=== PATIENT | male | born 1970 | race Caucasian/White ===

== ENCOUNTER → 2024-01-05 | Emergency (ER) | payer BC ==
[~2024-01-05] MED LIST: KETOROLAC 30 MG/ML INJ ONE; MAGNESIUM SULFATE 1 gm IVPB 1 GM/100 ML BAG IV ONE; NA CHLORIDE 0.9% 1,000 ML ONE; ONDANSETRON 4 MG/2 ML VIAL ONE; TAMSULOSIN 0.4 MG SR CAP ONE
--- OUTSIDE RECORDS SUMMARY | 2024-01-05 18:38 | XMS REPORT | Continuity of Care Document ---
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 Name Role Phone Manpreet Vital Attending Clinician Unavailable Manpreet Vital Admitting Clinician Unavailable Payers Payer Name Policy Type Policy Number Effective Date Expirati on Date Source Allergies, Adverse Reactions, Alerts Allergy Name Allergy Type Status Severity Reaction(s) Onset Date Inactive Date Treating Clinician Comments Source No Known Allergie s DA Active U 2020-10 0 00:00: 00 [facility] No Known Allergie s DA Active U 2020-10 0 00:00: 00 [facility] Procedures Procedure Date / Time Performed Performing Clinicia n Source [id number] 2021-07-22 00:00:00 [facility] [id number] 2021-07-22 00:00:00 MEANI [facility] Encounters Start Date/Time End Date/Time Encounter Type Admission Type Attending Clinicians Care Facility Care Department Encounter ID Source 2021-07-22 00:19:00 2021-07-24 12:35:00 Inpatient EM Manpreet Vital HCAPM MEDI.01 [id number] 49 [facility] 2021-07-23 10:04:00 2021-07-23 10:04:00 Outpatient Manpreet Vital HCACL LABO [id number] 97 [facility] Results Test Description Test Time Test Comments Results Result Co mments Source HGB [id number] 04:25:00* Test Item Value Reference Range Interpretation Comme nts HEMOGLOBIN (test code = HGB) 8.9 G/DL 12.3-15.9 L HEMATOCRIT (test code = HCT) 27.9 % 35.8-46.7 L GLUCOSE BEDSIDE [id number] 21:25:00* Test Item Value Reference Range Interpretation Comme nts GLUCOSE BEDSIDE TESTING (car t code = GLUBED) 83 mg/dL 70-110 N HGB [id number] 19:16:00* Test Item Value Reference Range Interpretation Comme nts HEMOGLOBIN (test code = HGB) 8.9 G/DL 12.3-15.9 L HEMATOCRIT (test code = HCT) 28.1 % 35.8-46.7 L PROTHROMBIN [id number] 19:16:00* Test Item Value Reference Range Interpretation Comme nts PT PATIENT (test code = PTP) 14.0 SECONDS 9.3-12.9 H INTERNATIONAL NORMAL RATIO (test code = INR) 1.24 INR Unit 0.8-1.2 H TARGET INR BY INDICATION Indication INR1. Prophylaxis of venous thrombosis 2.0 - 3.0 (orthopedic surgery), Prophylaxis of venous thrombosis (other than high-risk surgery), Treatment of Deep Vein Thrombosis/Pulmonary Embolism, Prevention of systemic embolism - Tissue heart valves, Acute Myocardial Infarction (to prevent systemic embolism), Valvular heart disease, Acute Myocardial Infarction (to prevent systemic embolism), Valvular heart disease, Atrial Fibrillation, Bileaflet mechanical valve in aortic position.2. Mechanical prosthetic valves (high risk), 2.5 - 3.5 Presence of Lupus Anticoagulant or Antiphospholipid Antibodies, Prevention of systemic embolism - Acute Myocardial Infarction (to prevent recurrent infarct). CBC W/AUTO [id number] 15:59:00* Test Item Value Reference Range Interpretation Comme nts WHITE BLOOD CELL (test code = WBC) 7.2 K/mm3 3.5-11.0 N RED BLOOD CELL (test code = RBC) 3.27 M/mm3 4.70-6.10 L HEMOGLOBIN (test code = HGB) 8.9 G/DL 12.3-15.9 L HEMATOCRIT (test code = HCT) 28.3 % 35.8-46.7 L MEAN CELL VOLUME (test code = MCV) 86.5 Fl 86.3-98.9 N MEAN CELL HGB (test code = MCH) 27.2 pg 28.9-34.4 L MEAN CELL HGB CONCETRATION (test code = MCHC) 31.4 G/DL 32.1-34.5 L RED CELL DISTRIBUTION WIDTH (test code = RDW) 13.7 SD 11.5-14.5 N PLATELET COUNT (test code = PLT) 137 K/mm3 150-450 L MEAN PLATELET VOLUME (test c ode = MPV) 10.50 fL 7.0-9.6 H NEUTROPHIL % (test code = NT%) 82.2 % 40-76 H IMMATURE GRANULOCYTE % (test code = IG%) 0.3 % 0.0-5.0 N LYMPHOCYTE % (test code = LY%) 11.4 % 20.5-51.1 L MONOCYTE % (test code = MO%) 5.0 % 1.7-9.3 N EOSINOPHIL % (test code = EO%) 1.0 % 0.0-6.0 N BASOPHIL % (test code = BA%) 0.1 % 0.0-2.0 N NUCLEATED RBC % (test code = NRBC%) 0.0 /100WBC% 0.0-1.0 N NEUTROPHIL # (test code = NT#) 5.9 K/mm3 1.8-7.6 N IMMATURE GRANULOCYTE # (test code = IG#) 0.02 x10 3/uL 0.00-0.03 N LYMPHOCYTE # (test code = LY#) 0.8 K/mm3 0.6-3.0 N MONOCYTE # (test code = MO#) 0.4 K/mm3 0.2-1.5 N EOSINOPHIL # (test code = EO#) 0.1 K/mm3 0.0-0.4 N BASOPHIL # (test code = BA#) 0.0 K/mm3 0.0-0.2 N NUCLEATED RBC # (test code = NRBC#) 0.0 K/mm3 0.00-0.01 N MANUAL DIFF REQUIRED (test c ode = MDIFF) NO DIFF/SCN CRITERIA HGB [id number] 13:08:00* Test Item Value Reference Range Interpretation Comme nts HEMOGLOBIN (test code = HGB) 10.3 G/DL 12.3-15.9 L HEMATOCRIT (test code = HCT) 33.0 % 35.8-46.7 L HGB [id number] 03:17:00* Test Item Value Reference Range Interpretation Comme nts HEMOGLOBIN (test code = HGB) 11.4 G/DL 12.3-15.9 L HEMATOCRIT (test code = HCT) 35.3 % 35.8-46.7 L COVID 19 Asymptomatic IH [id number] 02:09:00* Test Item Value Reference Range Interpretation Comme nts COVID 19 Asymptomatic IH AG (test code = COVNONPUIAG) NEGATIVE Negative Per television newscast director , negative results should be treated aspresumptive and, if inconsistent with clinical signs andsymptoms or necessary for patient management, should betested with an alternative molecular assay. Negative resultsdo not preclude SARS-CoV-2 infection and should not be usedas the sole basis for patient management decisions. Negative results should be considered in the context of apatient's recent exposures, history, presence of clinicalsigns and symptoms consistent with COVID-19. - CT ABD PELVIS W/[id number] 23:58:00 [facility] 1970 Sex: M Name: HALMIA CABALLERO [facility] : 1970 Age/S: 50 / M [address] [address] Unit #: [id number]: Beverley Pabon [address] Phys: Nabeel Mccall DO Acct: [id number] Dis Date: Status: REG ER PHONE #: [phone] Exam Date: 07/21/2021 2327 FAX #: Reason: rectal bleeding/recent colonoscopy/bloating EXAMS: CPT: [id number] CT ABD PELVIS W/CONT 98170 LOCATION: H43 EXAM: - CT ABD PELVIS W/CONT HISTORY: re ctal bleeding/recent colonoscopy/bloating TECHNIQUE: Axial imaging of the abdomen and pelvis from the lung base to the pubic symphysis following administration of intravenous contrast. Sagittal and coronal reconstructions. CT scan performed using appropriate/available dose optimization/reduction prashant hniques. COMPARISON: None. FINDINGS: Lung base:Mild bibasilar atelectasis. The heart size is normal. No pericardial or pleural effusion. Liver/spleen: Unremarkable. Biliary system: The gallbladder is unremarkable. No biliary duct dilatation. Pancreas: Unremarkable. Adrenal glands: Normal. Kidneys: 3.0 cm fluid density cyst at the right lower pole. 8 mm low-density at the right lower pole too small to characterize but likely a small cyst as well. Otherwise unremarkable. Vascular: Normal caliber abdominal aorta. Normal portal venous opacification. Lymph nodes: No abdominal lymphadenopathy. Pelvic structures: The urinary bladder is unremarkably distended. No pelvic lymphadenopathy or free flu id. Reproductive organs are within normal limits for age. Gastrointestinal tract:The length of thecolon and distal small bowel are fluid-filled without evidence of significant wall thickening or perienteric edema. Note is made of serpiginous hyperdensity along the PAGE 1 Signed Report (CONTINUED)Name: HALIMA CABALLERO : 1970 Age/S: 50 / M [address] [facility] Unit #: [id number] Loc: [place] [address] Phys: Nabeel Mccall Acct: [id number] Dis Date: Status: REG ER PHONE #: [phone] Exam Date: 07/21/2021 2324 FAX #: Reason: rectal bleeding/recent colonoscopy/bloating EXAMS: CPT: [id number] CT ABD PELVIS W/CONT 14427 (Continued) margin of the proximal ascending colon just cephalad to the ileocecal junction. (Coronal image 28-35) Although the appearance suggests possible vascular injury, no pooling contrast is identified to indicate active hemorrhage. There is no localized pneumatosis or pneumoperitoneum. No abnormal bowel dilatation. Normal caliber appendix is identified. No focal fluid collections, ascites or evidence of pneumoperitoneum. Bones and soft tissues: Osseous structures are intact. IMPRESSION: Serpiginous hyperdensity is noted within the proximal ascending colon just cephalad to the ileocecal junction. While this appearance could representacute vascular injury, there is no evidence of pooling contrast material to indicate an active hemorrhage. The colon and distal small bowel are fluid-filled, and otherwise unremarkable in appearance. at 2358 Reported and signed by: Oneida Jacques M.D. CC: Nabeel Mccall DO Technologist:Wilian Person, RT(R)(CT) CTDI: DLP: Trnscb Date/Time: 07/21/2021 (3508) t.BEVERLYR.NS15 Orig Print D/T: S: 07/22/2021 (0001) PAGE 2 Signed ReportBASIC METABOLIC [id number] 22:47:00* Test Item Value Reference Range Interpretation Comme nts SODIUM (test code = NA) 140 mmol/L 134-147 N POTASSIUM (test code = K) 4.1 mmol/L 3.4-5.0 N CHLORIDE (test code = CL) 111 mmol/L 100-108 H CARBON DIOXIDE (test code = CO2) 25 mmol/L 21-32 N ANION GAP (test code = GAP) 4.0 GAP calc 4.0-15.0 N GLUCOSE (test code = GLU) 111 MG/DL 70-110 H BLOOD UREA NITROGEN (test code = BUN) 18 MG/DL 7-18 N GLOMERULAR FILTRATION RATE (test code = GFR) >=60 max estimate estGFR >60 CREATININE (test code = CREAT) 1.2 MG/DL 0.8-1.3 N CALCIUM (test code = CA) 8.4 MG/DL 8.5-10.1 L HEPATIC FUNCTION [id number] 22:47:00* Test Item Value Reference Range Interpretation Comme nts TOTAL PROTEIN (test code = PROT) 6.0 G/DL 6.4-8.2 L ALBUMIN (test code = ALB) 3.1 G/DL 3.4-5.0 L BILIRUBIN TOTAL (test code = BILT) 0.20 MG/DL 0.2-1.2 N BILIRUBIN DIRECT (test code = BILD) < 0.10 MG/DL 0.00-0.30 N BILIRUBIN INDIRECT (test cod e = BILIND) 0.10 MG/DL 0.2-1.2 L SGOT/AST (test code = AST) 15 Unit/L 15-37 N SGPT/ALT (test code = ALT) 24 Unit/L 12-78 N ALKALINE PHOSPHATASE TOTAL ( test code = ALKP) 50 Unit/L 50-136 N [id number] 22:47:00* Test Item Value Reference Range Interpretation Comme nts LIPASE (test code = LIP) 147 Unit/L 114-286 N CBC W/AUTO [id number] 22:26:00* Test Item Value Reference Range Interpretation Comme nts WHITE BLOOD CELL (test code = WBC) 7.2 K/mm3 3.5-11.0 N RED BLOOD CELL (test code = RBC) 4.69 M/mm3 4.70-6.10 L HEMOGLOBIN (test code = HGB) 12.5 G/DL 12.3-15.9 N HEMATOCRIT (test code = HCT) 39.5 % 35.8-46.7 N MEAN CELL VOLUME (test code = MCV) 84.2 Fl 86.3-98.9 L MEAN CELL HGB (test code = MCH) 26.7 pg 28.9-34.4 L MEAN CELL HGB CONCETRATION (test code = MCHC) 31.6 G/DL 32.1-34.5 L RED CELL DISTRIBUTION WIDTH (test code = RDW) 13.8 SD 11.5-14.5 N PLATELET COUNT (test code = PLT) 172 K/mm3 150-450 N MEAN PLATELET VOLUME (test c ode = MPV) 10.40 fL 7.0-9.6 H NEUTROPHIL % (test code = NT%) 75.4 % 40-76 N IMMATURE GRANULOCYTE % (test code = IG%) 0.4 % 0.0-5.0 N LYMPHOCYTE % (test code = LY%) 14.4 % 20.5-51.1 L MONOCYTE % (test code = MO%) 7.3 % 1.7-9.3 N EOSINOPHIL % (test code = EO%) 2.2 % 0.0-6.0 N BASOPHIL % (test code = BA%) 0.3 % 0.0-2.0 N NUCLEATED RBC % (test code = NRBC%) 0.0 /100WBC% 0.0-1.0 N NEUTROPHIL # (test code = NT#) 5.4 K/mm3 1.8-7.6 N IMMATURE GRANULOCYTE # (test code = IG#) 0.03 x10 3/uL 0.00-0.03 N LYMPHOCYTE # (test code = LY#) 1.0 K/mm3 0.6-3.0 N MONOCYTE # (test code = MO#) 0.5 K/mm3 0.2-1.5 N EOSINOPHIL # (test code = EO#) 0.2 K/mm3 0.0-0.4 N BASOPHIL # (test code = BA#) 0.0 K/mm3 0.0-0.2 N NUCLEATED RBC # (test code = NRBC#) 0.0 K/mm3 0.00-0.01 N MANUAL DIFF REQUIRED (test c ode = MDIFF) NO DIFF/SCN CRITERIA Notes Date/Time Note Provider Source 2021-07-23 10:51:00 [id number] [id number]:51:00 [facility] ([facility])Hospitalist Progress NoteREPORT#:[id number] REPORT STATUS: SignedDATE:07/23/21 TIME:1051 PATIENT: HALIMA CABALLERO UNIT #: [id number]#: [id number] [address] [birth year] AGE: 50 SEX: M ATTEND: Manpreet Vital [facility] AUTHOR: Manpreet Vital MD * ALL edits or amendments must be made on the electronic/computer document * SubjectiveChief Complaint:No acute eventsNo further episodes of melena Objective GeneralVS/I O:Vital Signs: Date Time Temp Pulse Resp B/P B/P Pulse O2 O2 Flow FiO2 Mean Ox Delivery Rate 07/23 0700 73 111/62 80 99 07/23 0645 71 111/60 81 98 07/23 630 89 101/59 76 98 07/23 0616 101 108/57 73 98 07/23 600 76 92/46 66 99 07/23 0545 83 102/51 73 99 10/10 0530 78 102/47 68 97 10/10 0515 85 113/54 78 98 10/10 0500 77 118/58 83 97 10/10 0445 76 119/60 87 99 10/10 0433 98.6 10/10 0416 55 98 10/10 0400 88 109/53 77 100 10/10 0330 45 98 10/10 0315 76 90/52 68 99 10/10 0300 80 93/54 70 99 10/10 0245 78 91/53 68 98 10/10 0230 80 86/51 66 98 10/10 0215 88 95/54 69 99 10/10 0200 88 91/51 69 99 10/10 0145 93 107/52 74 99 10/10 0133 81 100 10/10 0130 98.4 86 18 86/41 98 10/10 0130 82 86/41 59 100 10/10 0115 83 9 80/45 59 98 10/10 0100 78 15 96/54 72 98 10/10 0045 86 17 95/53 68 98 10/10 0030 79 14 91/54 70 100 10/10 0018 92 24 88/52 60 100 10/10 0000 90 19 77/40 54 99 07/22 2330 83 15 88/48 64 97 07/22 2315 82 14 89/43 62 98 07/22 2300 90 22 83/47 62 07/228 87 19 07/22 2248 88 19 07/22 2245 82 16 89/49 65 07/22 2245 98.6 82 15 88/48 100 07/22 2237 89 29 92/49 68 07/22 2234 86 27 88/47 64 07/22 2230 98.6 84 16 89/49 99 07/22 2215 98.2 86 20 98/52 100 07/22 2000 97.6 07/22 1920 100 Nasal 2 cannula 07/22 1200 98.5 79 19 118/63 81 99 Room air 24 hour I O ending at 0700: 07/23 0700 07/22 1900 Intake Total 3125.00 Output Total Balance 3125.00 Intake, IV 2575.00 Intake, Oral 200 Intake, 350 Packed Cells Number 0 4 Bowel Movements Number Voids 2 PATIENT WEIGHT: Weight (lb): Weight (oz): Weight (kg): 86.364 Medications:Active Meds + DC'd Last 24 HrsOctreotide Acetate (SandoSTATIN) 0 .STK-MED ONE IV (DC) Octreotide Acetate (SandoSTATIN) 0 .STK-MED ONE IV (DC) Sodium Chloride (SODIUM CHLORIDE 0.9%) 100 ML .STK-MED ONE IV (DC) Octreotide Acetate (SandoSTATIN) 100 MCG .Q1H IV (DC) Sodium Chloride (SODIUM CHLORIDE 0.9%) 100 MLOctreotide Acetate (SandoSTATIN) 100 MCG .Q1H IV (DC) Sodium Chloride (SODIUM CHLORIDE 0.9%) 100 MLPantoprazole Sodium (PROTONIX) 40 MG Q12HR IV Octreotide Acetate (SandoSTATIN) 100 MCG ONCE ONE IV (DC) Octreotide Acetate (SandoSTATIN) 100 MCG .Q1H IV (DC) Sodium Chloride (SODIUM CHLORIDE 0.9%) 100 MLOctreotide Acetate (SandoSTATIN) 100 MCG ONCE ONE IV (DC) Epinephrine (ADRENALIN CHLORIDE) 0 .STK-MED ONE .ROUTE (DC) Ketamine HCl (KETAMINE 50MG/ML 10ML) 0 .STK-MED ONE .ROUTE (DC) Propofol (DIPRIVAN) 20 ML .STK-MED ONE IV (DC) Lidocaine HCl (XYLOCAINE) 0 .STK-MED ONE .ROUTE (DC) Midazolam HCl (VERSED) 0 .STK-MED ONE .ROUTE (DC) Epinephrine (EPINEPHrine) 0 .STK-MED ONE .ROUTE (DC) Ceftriaxone Sodium (ROCEPHIN) 1,000 MG Q24H IV Sterile Water (WATER FOR INJECTION) 10 MLMetronidazole/Sodium Chloride (metroNIDAZOLE 500MG / 100 MLNS) 100 ML Q8HR IV Morphine Sulfate (morphine Sulfate) 2 MG Q4H PRN PRN IV Sodium Chloride (0.9% Sodium Chloride) 1,000 ML .Q10H IV Physical ExamGeneral appearance: alert, awakeHead/Eyes: atraumatic, normocephalicENT: moist mucosal membranesNeck: full range of motion, non-tender, supple/no meningismus, no JVDCardiovascular: normal capillary refill, normal heart sounds, regular rate rhythm, no ectopy, no gallopRespiratory: aerating well, clear to auscultation, symmetric expansion, no distressAbdomen: non-tender, normal bowel sounds, soft, no distention, no guarding, no hernia, no mass/organomegaly, no reboundGenitourinary: no flank painExtremities: moves allMusculoskeletal: normal inspectionNeuro/TRAFFIC ROUTING ENGINEER: alert, oriented X 3, normal speech, no motor deficits, no sensory deficitsSkin: normal color, normal temperature, no rashLymphatics: neck normal, no lymphadenopathyPsychiatry: normal affect ResultsFindings/Data:Laboratory Tests 07/22 2119 Chemistry POC Glucose (70 - 110 mg/dL) 83 Laboratory Tests 07/22 1820 Coagulation INR (0.8 - 1.2 INR Unit) 1.24 H PT Patient/Control Mix (9.3 - 12.9 SECONDS) 14.0 H Laboratory Tests 07/23 07/22 07/22 0403 1820 1505 Hematology WBC (3.5 - 11.0 K/mm3) 7.2 RBC (4.70 - 6.10 M/mm3) 3.27 L Hgb (12.3 - 15.9 G/DL) 8.9 L 8.9 L 8.9 L Hct (35.8 - 46.7 %) 27.9 L 28.1 L 28.3 L MCV (86.3 - 98.9 Fl) 86.5 MCH (28.9 - 34.4 pg) 27.2 L MCHC (32.1 - 34.5 G/DL) 31.4 L RDW (11.5 - 14.5 SD) 13.7 Plt Count (150 - 450 K/mm3) 137 L MPV (7.0 - 9.6 fL) 10.50 H Neut % (Auto) (40 - 76 %) 82.2 H Lymph % (Auto) (20.5 - 51.1 %) 11.4 L Cochran % (Auto) (1.7 - 9.3 %) 5.0 Eos % (Auto) (0.0 - 6.0 %) 1.0 Baso % (Auto) (0.0 - 2.0 %) 0.1 Neut # (Auto) (1.8 - 7.6 K/mm3) 5.9 Lymph # (Auto) (0.6 - 3.0 K/mm3) 0.8 Cochran # (Auto) (0.2 - 1.5 K/mm3) 0.4 Eos # (Auto) (0.0 - 0.4 K/mm3) 0.1 Baso # (Auto) (0.0 - 0.2 K/mm3) 0.0 Abs Immat Gran (auto) (0.00 - 0.03 x10 3/uL) 0.02 Add Manual Diff (CRITERIA DIFF/SCN) NO Immature Gran % (0.0 - 5.0 %) 0.3 Nucleated RBC % (0.0 - 1.0 /100WBC%) 0.0 07/22 1200 Hematology Hgb (12.3 - 15.9 G/DL) 10.3 L Hct (35.8 - 46.7 %) 33.0 L Diagnosis, Assessment Plan Free Text DxA P NotesFree text DxA P notes:A 50 yo male with; 1. Rectal bleed, overt-Hemoglobin is within normal range-Monitor H H in am-IVF- GI will see him in am- keep NPO- Zoysn for now 2. s/p colonoscopy3. Benign hypertension- normoactive VTE ppx; no need PlanMonitor H H seriallyContinue antibioticsStart on ProtonixDiscussed with GIWe will keep n.p.o. for nowContinue home medicationsWe will keep n.p.o. for nowAwaiting further recommendations from GITransfuse as needed 07/23/2021tatus post emergent colonoscopySurgical clips placed on the culprit vesselAppreciate help from GIH H monitoredTransfuse as neededContinue PPI and IV antibioticsPossible DC in a.m. if hemoglobin is stable and no further bleedingDiscussed the patient and family at 1105 RPT #: [id number] OF REPORT PRProgress [id number]:51:00L.[id number] able for patient vvclCIWHZKOMTKPBVB9089-28-46C56:06:18 [facility] 2021-07-22 16:53:00 [id number]/Sqj/bgT SLZspLd0V/TPiDWz+wMtDDZrb/K6285-81-58J51:53:64948 9-0030 [facility] [address] [place] [address] PATIENT NAME: HALIMA CABALLERO ADMIT DATE: 07/22/21ACCOUNT NO: [id number] ROOM NO: L.MSO06 AGE: 50 REPORT TYPE: OPERATIVE REPORT SEX: M ADMITTING PHYSICIAN: Manpreet Vital MD ATTENDING PHYSICIAN: Manpreet Vital MD OPERATION DATE: 07/22/2021 PREOPERATIVE DIAGNOSIS: POSTOPERATIVE DIAGNOSIS: PROCEDURES:1. Emergency colonoscopy for hemostasis purpose.2. Hemostasis from visible vessel, most likely cause of bleeding in the cecalpolypectomy area by application of 4 hemostatic clips. SURGEON: Shahid Hopkins MD. COILER OPERATOR: ANESTHESIA: Administered by Department of Anesthesia. INDICATION: Emergency colonoscopy due to post-polypectomy bleeding of delayedtype, preparation not acceptable, done as an emergency procedure; however, lotsof lavages and washes were used to clean up the colon. Postop, please seebelow. PROCEDURE IN DETAIL: The procedural possible complication, and alternativesincluding but not limited to possibility of bleeding, perforation, tear,infection, sepsis, need for surgery, need for blood transfusion, andanesthesia-related problem including rare fatalities and emergency nature of theprocedure were explained to the patient. He is 7 days out from pastcolonoscopy. As soon as scope was inserted, digital anorectal examination revealed blood andclot as expected before. As we advanced the areas, it was washed and lavaged toclean up as much as possible. The previous polypectomy site in the transversecolon and ascending colon area appeared to be within normal range. No visiblevessel noted. However, as soon as cecum was intubated in the cecal area, alarge clot was noted. This was washed off and systematically removed. Afterthis, the visible clot was quite evident. Therefore, the visible vessel hasbeen sealed by using 4 hemostatic clips and consolidating it. On way back,scope was retrieved back and forth throughout all of the above areas repeatedand diligent visualization did not reveal any additional cause of bleeding. IMPRESSION: A visible vessel and likely bleeding from the cecal polypectomysite, probably infection is playing a role. PATIENT NAME: HALIMA CABALLERO PLAN: We will watch him carefully. Follow hemoglobin and hematocrit, transfuseas needed and other supportive measures. If any further followup colonoscopywill be needed, this will be done, I will be standing by. COMPLICATIONS: None immediately. The patient tolerated the procedure well. DISPOSITION: Not applicable, on the floor. Dictated By: Shahid Hopkins MD WT: OP:L.HIM/MEANI/NTSDD: 07/22/2021 16:53:11DT: 07/22/2021 21:03:37Conf#: [id number]/DID#: [id number] Authenticated by Shahid Hopkins MD On 07/24/2021 08:23:43 PM at 0823 PATIENT NAME: HALIMA CABALLERO [id number]:03:00L.[id number] lable for patient [id number]:24:19 [facility] 2021-07-22 13:49:00 [id number] UIabT9uNQmfZJjGM+ehEXrleMXsvV J5kJGLdD7ndKUe6ywl2rKj/[id number]:49:05004 9-0027 [facility] [address] [place] [id number] PATIENT NAME: HALIMA CABALLERO ADMIT DATE: 07/22/21ACCOUNT NO: [id number] ROOM NO: L.MSO06 AGE: 50 REPORT TYPE: CONSULTATION SEX: M ADMITTING PHYSICIAN: Manpreet Vital MD ATTENDING PHYSICIAN: Manpreet Vital MD CONSULTATION DATE: 07/22/2021 CONSULTING PHYSICIAN: Shahid Hopkins MD ATTENDING PHYSICIAN: Manpreet Vital MD. REASON FOR CONSULTATION: GI bleeding. HISTORY OF PRESENT ILLNESS: Mr. Caballero is a 50-year-old gentleman who underwentroutine colonoscopy with removal of multiple polyps. However, 6 to 7 days afterhis procedure, he developed GI bleeding in the form of profuse bright red blood. He feels somewhat weak; however, not dizzy. No abdominal pain. Nohematemesis, melena, or hematochezia. Outpatient antibiotic was prescribed andhe was told if he has recurrent bleeding and if he develops weakness, to come [facility]. The patient called me on the on-call phone and I advised him tocome to the hospital. Upon arrival at this time, he states that other than weakness, he does notperceive anything new since the morning. He had had 1 bowel movement; however,this is more solid and more formed. No shortness of breath or cough. No chestpain. No headache. PAST MEDICAL HISTORY: In general, healthy. PAST SURGICAL HISTORY: As elaborated above. Recent colonoscopy with removal ofpolyp. FAMILY HISTORY: Denies any gastrointestinal malignancy in the family. SOCIAL HISTORY: No indulgence to any substance. PSYCHIATRIC HISTORY: None. ALLERGIES: REVIEWED IN THE CHART. MEDICATIONS: Reviewed in the chart. REVIEW OF SYSTEMS:GENERAL: No weight loss. No weight gain. Appetite is good. No fever orchills. No loss of taste and no other acute problem.GASTROINTESTINAL: As elaborated above.HEPATOLOGIC: Denies any history of jaundice, hepatitis, or any other PATIENT NAME: HALIMA CABALLERO liver-related issue.PULMONARY: No shortness of breath, cough, or expectoration.CARDIAC: No palpitation or heart murmur. No orthopnea or dyspnea.MUSCULOSKELETAL: No complaint. No limitation.NEUROPSYCHIATRIC: None.NEUROENDOCRINE: Other than anxiety related to acute bleeding, no other newfinding.LYMPHORETICULAR: No complaint. PHYSICAL EXAMINATION:GENERAL: Young male. At this time, no other acute distress noted. Hemodynamicrespiratory profile within normal range.HEENT: Atraumatic and normocephalic. No temporal wasting. No facial wasting. Oropharyngeal area is moist. No generalized pallor noted.NECK: Supple. No lymphadenopathy. Trachea is central in position.CHEST: Clear to auscultation and percussion. Good air exchange.CARDIAC: Normal S1 and S2. No S3. No S4.ABDOMEN: Soft, nontender, and nondistended. Excellent bowel sounds in allquadrants. No acute tenderness, no rebound tenderness. No hepatomegaly. Nosplenomegaly. No succussion splash.NEUROLOGIC: Alert and oriented x3. Intact memory, mentation, and judgment. Can move all parts of extremities without any limitations.EXTREMITIES: Upper and lower extremities are normal, symmetrical. DIAGNOSTIC DATA: Last hemoglobin is 11. Electrolyte panel is acceptable range. However, repeat one is still pending. IMPRESSION, PLAN, RECOMMENDATIONS: Mr. Caballero is a 50-year-old gentleman withby definition delayed post-polypectomy bleeding. Therefore, infection has areasonable chance. He should be on IV antibiotic in addition to the monitoringof hemoglobin and hematocrit. Follow serial hemoglobin and hematocrit,transfuse if it reaches a critical parameter that his hemoglobin 7 or below orany hemodynamic abnormality. We will have his consent for colonoscopy, so we have it available. If emergentcolonoscopy is needed, I will standby. After discussion with the patient regarding the indication, contraindication,possible complication, and alternatives of GI bleeding, specificallypost-polypectomy bleeding, he has clear understanding. Our aim in this case will be to monitor his IV fluid and transfuse as needed. In addition to that if he develops any other symptoms. We will proceed with theprocedure, but the natural history has been discussed with him that in most ofthe cases it will spontaneously cease. If it does not, he may need repeatcolonoscopy and/or surgery. The patient seems to understand and has good insight and he is agreeable. Dictated By: Shahid Hopkins MD WT: CON:L.ROSENDA/JONE/ESCOBARDD: 07/22/2021 13:49:26DT: 07/22/2021 19:46:52 PATIENT NAME: HALIMA CABALLERO Conf#: [id number]/DID#: [id number] Authenticated by Shahid Hopkins MD On 07/24/2021 08:23:37 PM at 0823 PATIENT NAME: HALIMA CABALLERO :46:00L.CO [id number] for patient [id number]:24:09 [facility] 2021-07-22 09:41:00 [id number] NHsbGqBe3fO8U/B9SpM9rnlv6Xd2761-55-62H58:41:00 [facility] ([facility])Hospitalist Progress NoteREPORT#:[id number] REPORT STATUS: SignedDATE:07/22/21 TIME:940 PATIENT: HALIMA CABALLERO UNIT #: [id number]#: [id number] [address] AGE: 50 SEX: M ATTEND: Manpreet Vital MDA AUTHOR: Manpreet Vital MD * ALL edits or amendments must be made on the electronic/computer document * SubjectiveChief Complaint:No acute eventsStill has GI bleeds Objective GeneralVS/I O:Vital Signs: Date Time Temp Pulse Resp B/P B/P Pulse O2 O2 Flow FiO2 Mean Ox Delivery Rate 07/22 0400 97.7 71 15 113/63 79 99 Room air 07/21 2141 98.1 83 19 137/86 103 97 Room air 24 hour I O ending at 0700: 07/22 0700 07/21 1900 Intake Total Output Total Balance Patient 190 lb Weight Weight Stated/Reported Measurement Method PATIENT WEIGHT: Weight (lb): Weight (oz): Weight (kg): 86.364 Medications:Active Meds + DC'd Last 24 HrsPantoprazole Sodium (PROTONIX) 40 MG Q12HR IV Ceftriaxone Sodium (ROCEPHIN) 1,000 MG Q24H IV Sterile Water (WATER FOR INJECTION) 10 MLMetronidazole/Sodium Chloride (metroNIDAZOLE 500MG / 100 MLNS) 100 ML Q8HR IV (CKD) Morphine Sulfate (morphine Sulfate) 2 MG Q4H PRN PRN IV Sodium Chloride (0.9% Sodium Chloride) 1,000 ML .Q10H IV Sodium Chloride (0.9% Sodium Chloride) 50 ML .STK-MED ONE IV (DC) Iopamidol (ISOVUE-300) 0 .STK-MED ONE .ROUTE (DC) Piperacillin Sod/Tazobactam Sod (ZOSYN) 4.5 GM X1ED STA IV (DC) Sodium Chloride (SODIUM CHLORIDE 0.9%) 100 MLSodium Chloride (0.9% Sodium Chloride) 1,000 ML X1ED STA IV (DC) Physical ExamGeneral appearance: alert, awakeHead/Eyes: atraumatic, EOMI, normal conjunctiva/sclera, normal fundi, normocephalic, PERRLENT: moist mucosal membranesNeck: full range of motion, non-tender, supple/no meningismus, no JVDCardiovascular: normal capillary refill, normal heart sounds, regular rate rhythm, no ectopy, no gallopRespiratory: aerating well, clear to auscultation, symmetric expansion, no distressAbdomen: non-tender, normal bowel sounds, soft, no distention, no guarding, no hernia, no mass/organomegaly, no reboundGenitourinary: no flank painExtremities: moves allMusculoskeletal: normal inspectionNeuro/TRAFFIC ROUTING ENGINEER: alert, oriented X 3, normal speech, no motor deficits, no sensory deficitsSkin: normal color, normal temperature, no rashLymphatics: neck normal, no lymphadenopathyPsychiatry: normal affect ResultsFindings/Data:Laboratory Tests 07/21 2215 Chemistry Sodium (134 - 147 mmol/L) 140 Potassium (3.4 - 5.0 mmol/L) 4.1 Chloride (100 - 108 mmol/L) 111 H Carbon Dioxide (21 - 32 mmol/L) 25 Anion Gap (4.0 - 15.0 GAP calc) 4.0 BUN (7 - 18 MG/DL) 18 Creatinine (0.8 - 1.3 MG/DL) 1.2 Glomerular Filtr Rate (>60 estGFR) >=60 max estimate Glucose (70 - 110 MG/DL) 111 H Calcium (8.5 - 10.1 MG/DL) 8.4 L Total Bilirubin (0.2 - 1.2 MG/DL) 0.20 Direct Bilirubin (0.00 - 0.30 MG/DL) < 0.10 Indirect Bilirubin (0.2 - 1.2 MG/DL) 0.10 L AST (15 - 37 Unit/L) 15 ALT (12 - 78 Unit/L) 24 Total Alk Phosphatase (50 - 136 Unit/L) 50 Total Protein (6.4 - 8.2 G/DL) 6.0 L Albumin (3.4 - 5.0 G/DL) 3.1 L Lipase (114 - 286 Unit/L) 147 Laboratory Tests 07/22 07/21 0300 2215 Hematology WBC (3.5 - 11.0 K/mm3) 7.2 RBC (4.70 - 6.10 M/mm3) 4.69 L Hgb (12.3 - 15.9 G/DL) 11.4 L 12.5 Hct (35.8 - 46.7 %) 35.3 L 39.5 MCV (86.3 - 98.9 Fl) 84.2 L MCH (28.9 - 34.4 pg) 26.7 L MCHC (32.1 - 34.5 G/DL) 31.6 L RDW (11.5 - 14.5 SD) 13.8 Plt Count (150 - 450 K/mm3) 172 MPV (7.0 - 9.6 fL) 10.40 H Neut % (Auto) (40 - 76 %) 75.4 Lymph % (Auto) (20.5 - 51.1 %) 14.4 L Cochran % (Auto) (1.7 - 9.3 %) 7.3 Eos % (Auto) (0.0 - 6.0 %) 2.2 Baso % (Auto) (0.0 - 2.0 %) 0.3 Neut # (Auto) (1.8 - 7.6 K/mm3) 5.4 Lymph # (Auto) (0.6 - 3.0 K/mm3) 1.0 Cochran # (Auto) (0.2 - 1.5 K/mm3) 0.5 Eos # (Auto) (0.0 - 0.4 K/mm3) 0.2 Baso # (Auto) (0.0 - 0.2 K/mm3) 0.0 Abs Immat Gran (auto) (0.00 - 0.03 x10 3/uL) 0.03 Add Manual Diff (CRITERIA DIFF/SCN) NO Immature Gran % (0.0 - 5.0 %) 0.4 Nucleated RBC % (0.0 - 1.0 /100WBC%) 0.0 Laboratory Tests 07/22 0136 Serology SARS-CoV-2 Ag (Rapid) (Negative) NEGATIVE Radiology data:Recent Impressions:CAT SCAN - CT ABD PELVIS W/CONT 07/21 2321 Report Impression - Status: SIGNED Entered: 07/22/2021 0001 IMPRESSION:Serpiginous hyperdensity is noted within the proximal ascending colonjust cephalad to the ileocecal junction. While this appearance couldrepresent acute vascular injury, there is no evidence of poolingcontrast material to indicate an active hemorrhage. The colon and distal small bowel are fluid-filled, and otherwiseunremarkable in appearance. Impression By: [email or web address] Jose Jacques M.D. Diagnosis, Assessment Plan Free Text DxA P NotesFree text DxA P notes:A 50 yo male with; 1. Rectal bleed, overt-Hemoglobin is within normal range-Monitor H H in am-IVF- GI will see him in am- keep NPO- Zoysn for now 2. s/p colonoscopy3. Benign hypertension- normoactive VTE ppx; no need PlanMonitor H H seriallyContinue antibioticsStart on ProtonixDiscussed with GIWe will keep n.p.o. for nowContinue home medicationsWe will keep n.p.o. for nowAwaiting further recommendations from GITransfuse as needed at 1049 RPT #: [id number] OF REPORT PRProgress [id number]:41:00L.[id number] able for patient ylglUSZRFGHZCPCEBE8654-54-36O19:50:00 [facility] 2021-07-21 21:52:00 [id number]+FUbKc7C1TwhdK7X G8lYV1/LdU1KqvLJTh2kH/nT3OF0548-23-05V61:52:82686 1-[address] [address] PATIENT NAME: HALIMA CABALLERO ADMIT DATE: 07/22/21ACCOUNT NO: [id number] [place] NO: [id number] AGE: 50 REPORT TYPE: eELECTROCARDIOGRAM SEX: M ADMITTING PHYSICIAN: Manpreet Vital MD ATTENDING PHYSICIAN: Manpreet Vital MD Order:[id number] Reason : Test Date/Time Stamp:SatJul 21 2021 21:52:02Blood Pressure : / mmHGVent. Rate : 082 BPM Atrial Rate : 082 BPM P-R Int : 150 ms QRS Dur : 080 ms QT Int : 330 ms P-R-T Axes : 076 081 047 degrees QTc Int : 385 ms Normal sinus rhythmNormal ECGNo previous ECGs availableConfirmed by Mary Jose ([id number]) on 07/24/2021 4:51:11 PM Referred By: Self Referred Confirmed by:Mary Jose at 1651 PATIENT NAME: HALIMA CABALLERO .[id number] AVAvailable for patient koxaBSYYIQJZUDSINM1435-99-03I92:51:36 [facility] 2021-07-21 21:44:00 [id number] 9VGxRGKyOUH4wvuI0dEY4k7wvOK8149-85-37C42:44:00 [facility] HospitalEMERGENCY PROVIDER REPORTREPORT#:[id number] REPORT STATUS: SignedDATE:07/21/21 TIME:2143 PATIENT: HALIMA CABALLERO UNIT #: [id number]#: [id number] [address] AGE: 50 SEX: M PCP PHYS: DOES_NOT KNOWSERVICE AUTHOR: Nabeel Mccall DO * ALL edits or amendments must be made on the electronic/computer document * HPI-GI Bleed/Rectal Prob GeneralConfirmed Patient YesInitial Greet Date/Time 07/21/21 213 PresentationChief Complaint rectal bleedingBleeding Severity ModerateHx Obtained From PatientOnset Occurred TodaySymptom Duration Since onsetProgression since Onset IntermittentContext of Onset recent colonoscopy with polyp resection Severity: Current No pain currentlyAssociated withReports: Weakness. Denies: Abdominal pain, Chest pain, Diarrhea, Faintness, Fever, Rectal pain, Shortness of breath, Syncope. Exacerbated by NothingRelieved by Nothing Review of Systems ROS StatementsComplete sys rev neg except as marked. Focused Review of SystemsConstitutionalReports: Weakness - generalized. Denies: Chills, Fever, Lethargy. Ears/Nose/ThroatDenies: Earache bilat, Nasal congestion, Sore throat. RespiratoryDenies: Cough, non-productive, Cough, productive, Shortness of breath. CardiovascularDenies: Chest pain, Syncope. GIReports: Bloody/tarry stool. Denies: Abdominal pain, Constipation, Diarrhea, Melena, Nausea, Rectal pain, Vomiting. HematologicDenies: Bleeding, Bruising. SkinDenies: Diaphoresis, Rash. NeurologicDenies: Change LOC, Dizziness, Focal weakness, Headache, Numbness, Slurred speech. Past Medical History - AdultStated Complaint GI BLEED ADV BY DOC TO NilsaergiesCoded Allergies:No Known Allergies (07/21/21) Physical Exam Vital SignsVital SignsFirst Documented: Result Date Time Pulse Ox 97 07/21 2141 B/P 137/86 07/21 2141 B/P Mean 103 07/21 2141 O2 Delivery Room air 07/21 2141 Temp 98.1 07/21 2141 Pulse 83 07/21 2141 Resp 19 07/21 2141 Last Documented: Result Date Time Pulse Ox 97 07/21 2141 B/P 137/86 07/21 2141 B/P Mean 103 07/21 2141 O2 Delivery Room air 07/21 2141 Temp 98.1 07/21 2141 Pulse 83 07/21 2141 Resp 19 07/21 2141 Review of Vital Signs Reviewed Focused PEGeneral/Const General/Const Awake, AlertEars/Nose/Throat Ears/Nose/Throat Airway patent, Mucous membranes moist, Pharynx NLResp/Chest Respiratory/Chest Breath sounds NL, Breath sounds = bilat, No respiratory distress, No rales, No rhonchi, No wheezingCardiovascular Cardiovascular Heart rate NL, Regular rhythm, Heart sounds NL, Cap refill notdelayed, Peripheral circulation NLAbdomen/GI Abdomen/GI Soft, Non-tender, No guarding, No rebound, BS normoactive, No distention, No palpable mass, No pulsatile massSkin Skin Color NL, Warm, Dry, Turgor NLNeurologic Neurologic Oriented X3, Speech NL, No motor deficits, No sensory deficits Additional PEMS Head Head Atraumatic, NormocephalicEyes Eyes PERRL, No scleral icterusMS Upper Extrem Upper Extremity/MS Atraumatic, Inspection NL Interpretation Diagnostics Lab Results InterpretationResultsLaboratory Tests 07/21/212214:[Embedded Image Not Available]Laboratory Tests: 07/21 2215 Chemistry Sodium (134 - 147 mmol/L) 140 Potassium (3.4 - 5.0 mmol/L) 4.1 Chloride (100 - 108 mmol/L) 111 H Carbon Dioxide (21 - 32 mmol/L) 25 Anion Gap (4.0 - 15.0 GAP calc) 4.0 BUN (7 - 18 MG/DL) 18 Creatinine (0.8 - 1.3 MG/DL) 1.2 Glomerular Filtr Rate (>60 estGFR) >=60 max estimate Glucose (70 - 110 MG/DL) 111 H Calcium (8.5 - 10.1 MG/DL) 8.4 L Total Bilirubin (0.2 - 1.2 MG/DL) 0.20 Direct Bilirubin (0.00 - 0.30 MG/DL) < 0.10 Indirect Bilirubin (0.2 - 1.2 MG/DL) 0.10 L AST (15 - 37 Unit/L) 15 ALT (12 - 78 Unit/L) 24 Total Alk Phosphatase (50 - 136 Unit/L) 50 Total Protein (6.4 - 8.2 G/DL) 6.0 L Albumin (3.4 - 5.0 G/DL) 3.1 L Lipase (114 - 286 Unit/L) 147 Hematology WBC (3.5 - 11.0 K/mm3) 7.2 RBC (4.70 - 6.10 M/mm3) 4.69 L Hgb (12.3 - 15.9 G/DL) 12.5 Hct (35.8 - 46.7 %) 39.5 MCV (86.3 - 98.9 Fl) 84.2 L MCH (28.9 - 34.4 pg) 26.7 L MCHC (32.1 - 34.5 G/DL) 31.6 L RDW (11.5 - 14.5 SD) 13.8 Plt Count (150 - 450 K/mm3) 172 MPV (7.0 - 9.6 fL) 10.40 H Neut % (Auto) (40 - 76 %) 75.4 Lymph % (Auto) (20.5 - 51.1 %) 14.4 L Cochran % (Auto) (1.7 - 9.3 %) 7.3 Eos % (Auto) (0.0 - 6.0 %) 2.2 Baso % (Auto) (0.0 - 2.0 %) 0.3 Neut # (Auto) (1.8 - 7.6 K/mm3) 5.4 Lymph # (Auto) (0.6 - 3.0 K/mm3) 1.0 Cochran # (Auto) (0.2 - 1.5 K/mm3) 0.5 Eos # (Auto) (0.0 - 0.4 K/mm3) 0.2 Baso # (Auto) (0.0 - 0.2 K/mm3) 0.0 Abs Immat Gran (auto) (0.00 - 0.03 x10 3/uL) 0.03 Add Manual Diff (CRITERIA DIFF/SCN) NO Immature Gran % (0.0 - 5.0 %) 0.4 Nucleated RBC % (0.0 - 1.0 /100WBC%) 0.0 Microbiology: Date/Time Procedure - Status Source Growth 07/21 2216 Blood Culture - ORD BLOOD 07/21 2216 Blood Culture - ORD BLOOD Recent Impressions:CAT SCAN - CT ABD PELVIS W/CONT 07/211 Report Impression - Status: SIGNED Entered: 07/22/2021 0001 IMPRESSION:Serpiginous hyperdensity is noted within the proximal ascending colonjust cephalad to the ileocecal junction. While this appearance couldrepresent acute vascular injury, there is no evidence of poolingcontrast material to indicate an active hemorrhage. The colon and distal small bowel are fluid-filled, and otherwiseunremarkable in appearance. Impression By: Joselin Jacques M.D. ECG #1 InterpretationText/Dict NoteInterpreted by Dr. Mccall: Normal Sinus RhythmRate 82Normal AxisNo acute ST segment changesNonspecific T wave changesNo heart blocks Date 07/21/21Time 2Interpreted by and reviewed by me Re-Evaluation MDM Re-Evaluation/Progress #1Text/Dict NoteAppears comfortable. Linearly present while passing bowel movements. No bleeding at this time. No other complaints.Time of Re-Eval 0000Re-Eval Status Unchanged ED CourseMedication(s) OrderedMedication(s) Ordered:Anti-Infective Agents Sig/Patience Start time Last Medication Dose Route Stop Time Status Admin Piperacillin Sod/ 4.5 GM X1ED STA 07/21 2215 DC 07/21 Tazobactam Sod IV 07/21 2302 2318 Sodium Chloride 100 ML Diagnostic Agents Sig/Patience Start time Last Medication Dose Route Stop Time Status Admin Iopamidol 0 .STK-MED ONE 07/21 2254 DC 07/21 .ROUTE 233 Electrolytic, Caloric, And David Sig/Patience Start time Last Medication Dose Route Stop Time Status Admin Sodium Chloride 50 ML .STK-MED ONE 07/21 2338 DC 07/21 IV 07/21 2339 2338 Sodium Chloride 1,000 ML X1ED STA 07/21 2215 DC 07/21 IV 07/21 2315 2319 ConsultationConsultation Referral/Consult Name Shahid Hopkins MD Automotive Drivability Technician Called Gastroenterology Requested Call Time 2215 Requested Call Date 07/21/21 Call Returned Call returned Call Returned Time 2215 Call Returned Date 07/21/21 Automotive Drivability Technician Will see patient, Advises for broad spectrum antibiotic, admission, trend H H. Patient Discharge Departure Vital Signs/ConditionVital SignsFirst Documented: Result Date Time Pulse Ox 97 07/21 2141 B/P 137/86 07/21 2141 B/P Mean 103 07/21 2141 O2 Delivery Room air 07/21 2141 Temp 98.1 07/21 2141 Pulse 83 07/21 2141 Resp 19 07/21 2141 Last Documented: Result Date Time Pulse Ox 97 07/21 2141 B/P 137/86 07/21 2141 B/P Mean 103 07/21 2141 O2 Delivery Room air 07/21 2141 Temp 98.1 07/21 2141 Pulse 83 07/21 2141 Resp 19 07/21 2141 All vital signs available at the time of this entry have been reviewed. Clinical ImpressionClinical ImpressionPrimary Impression: Rectal bleeding Disposition DecisionAdmit Admit Physician Name Manpreet Vital MD Admit Physician Hospitalist Request Time 13 Request Date 07/22/21 )( Admission Accepts Yes )( Accepted Time 14 )( Accepted Date 07/22/21 Call Information will see patient, agrees with eval, agrees with plan Discharge/Care PlanCounseled Regarding Diagnosis, Lab results, Imaging studies, Need for admission at 0440 [facility] #: [id number] OF REPORTEDEmergency department [id number]:44:00L.[id number] ilable for patient iupfMNVJUWWRJBJCXM6395-07-77E87:40:43 [facility]
[2024-01-05 19:50] LABS: Specific Gravity 1.019 (1.005-1.030); Sqamous Epithelial None Seen /HPF (None Seen); Urine Bacteria <20 /HPF (<20); Urine Bilirubin NEGATIVE (Negative); Urine Blood Negative (Negative); Urine Clarity Clear (Clear); Urine Color Light-Yellow (Yellow); Urine Culture Reflex Order NOT NEEDED; Urine Glucose NEGATIVE (Negative); Urine Ketones NEGATIVE (Negative); Urine Microscopic Reflex YN ORDER UMIC; Urine Mucus Slight /HPF (None Seen); Urine Nitrite NEGATIVE (Negative); Urine Protein NEGATIVE (Negative); Urine RBC <5 /HPF (None Seen); Urine Urobilinogen Normal (Normal); Urine WBC <5 /HPF (<5)
[2024-01-05 19:51] LABS: Absolute Eosinophils 0.1 K/uL (0-0.5); Absolute Lymphocytes (CBC) 0.8 K/uL (0.7-4.9); Absolute Monocytes 0.6 K/uL (0.1-1.3); Absolute Neutrophil 8.6 K/uL (1.8-8.0); Basophils % 0.3 % (0-1.3); Eosinophils % 1.4 % (0-4.4); Hemoglobin 15.4 g/dL (13.6-17.9); Lymphocytes % 7.4 % (15.3-44.8); MCH 25.8 pg (27.0-35.0); MCHC 33.4 g/dL (32.0-36.0); MCV 77.1 fL (80-100); MPV 8.6 fL (7.6-11.3); Monocytes % 6.1 % (3.3-12.3); Neutrophils % 84.8 % (41.7-73.7); Platelets 178 thou/uL (152-406); RBC Red Blood Cell Count 5.96 M/uL (4.33-5.43); Red Cell Distribution Width 14.5 % (12.1-15.2)
[2024-01-05 20:01] LABS: Albumin 3.3 g/dL (3.4-5.0); Albumin/Globulin Ratio 0.9 (1.1-1.8); Anion Gap 7.7 mEq/L (5.0-15.0); Bilirubin Total 0.4 mg/dL (0.2-1.0); Globulin 3.8 g/dL (2.3-3.5); Protein, Total 7.1 g/dL (6.4-8.2)
[2024-01-05 20:35] LABS: Potassium 3.7 mEq/L (3.5-5.1)
--- NOTE | 2024-01-05 21:28 | RAD REPORT ---
EXAM DESCRIPTION: CT - Stone Protocol - 01/05/2024 9:21 pm CLINICAL HISTORY: Flank pain. FLANK PAIN COMPARISON: No comparisons TECHNIQUE: Axial images were obtained without oral or IV contrast. Lack of contrast limits solid org an and vascular assessment. The vxuzh-nu-mcaw spans the entirety of the system partially obscuring uppermost abdomen and lung bases. Coronal reformatted images were obtained and reviewed. All CT scans are performed using dose optimization technique as appropriate and may include automated exposure control or mA/KV adjustment according to patient size. FINDINGS: The lower lung castillo are clear. Imaged portions of the liver and spleen show no suspicious findings on non-contrast imaging. The panc reas and adrenal glands are normal. No pathologic lymphadenopathy in the abdomen or pelvis. 4 mm calculus left UVJ along the bladder aspect. Small calculi are present in the calices of both kid neys. No significant hydronephrosis. No bowel obstruction, free air, free fluid or abscess. Normal appendix noted. No significant bony abnormality. IMPRESSION: 4 mm calculus left UVJ along the bladder mucosa. Small caliceal calculi bilaterally without hydronephrosis.
[2024-01-05 22:01] LABS: Blood Morphology Comment NOT SEEN (NOT SEEN); Platelet Estimate ADEQ; White Blood Cell Scan OK (OK)
--- NOTE | 2024-01-05 22:09 | EDPHYS ---
Physician Documentation [facility] Name: Gregory Berg Age: 53 yrs Sex: Male : 1970 Arrival Date: 01/05/2024 Time: 18:35 Bed 14 Private MD: ED Physician Richar Winters HPI: 01/04 19:00 This 53 yrs old Male presents to ER via Ambulatory with complaints of Abdominal Pain, cp Vomiting. 19:00 The patient presents with abdominal pain left flank. Onset: The symptoms/episode cp began/occurred this morning. Associated signs and symptoms: Pertinent positives: nausea, Pertinent negatives: blood in stools, chest pain, constipation, diarrhea, fever, shortness of breath, testicular pain, vomiting. The symptoms are described as waxing/waning. The patient has not experienced similar symptoms in the past. Historical: - Allergies: 19:00 No Known Allergies; ha1 - Immunization history:: Adult Immunizations up to date. - Social history:: Smoking status: Patient reports the use of cigarette tobacco products, cigars. ROS: 19:05 Back: Positive for flank pain, on the left, Negative for injury or acute deformity, cp decreased range of motion, 19:05 Eyes: Negative for injury, pain, redness, and discharge, cp 19:05 Constitutional: Negative for body aches, chills, fever, poor PO intake, 19:05 ENT: Negative for drainage from ear(s), ear pain, sore throat, difficulty swallowing, difficulty handling secretions, 19:05 Cardiovascular: Negative for chest pain, edema, palpitations, 19:05 Respiratory: Negative for cough, shortness of breath, wheezing, 19:05 Abdomen/GI: Positive for abdominal pain, nausea, Negative for vomiting, diarrhea, constipation, black/tarry stool, rectal bleeding, 19:05 Neuro: Negative for altered mental status, dizziness, headache, numbness, weakness, 19:05 All other systems are negative, Exam: 19:10 Constitutional: The patient appears in no acute distress, alert, awake, cp non-diaphoretic, non-toxic, well developed, well nourished, uncomfortable, 19:10 Head/Face: Normocephalic, atraumatic. cp 19:10 Eyes: Periorbital structures: appear normal, Conjunctiva: normal, no exudate, no injection, Sclera: no appreciated abnormality, Lids and lashes: appear normal, bilaterally, 19:10 ENT: External ear(s): are unremarkable, Nose: is normal, Mouth: Lips: moist, Oral mucosa: pink and intact, moist, Posterior pharynx: is normal, airway is patent, no erythema, no exudate, 19:10 Chest/axilla: Inspection: normal, Palpation: is normal, no crepitus, no tenderness, 19:10 Cardiovascular: Rate: normal, Rhythm: regular, 19:10 Respiratory: the patient does not display signs of respiratory distress, Respirations: normal, no use of accessory muscles, no retractions, labored breathing, is not present, Breath sounds: are clear throughout, no decreased breath sounds, no stridor, no wheezing, 19:10 Abdomen/GI: Inspection: abdomen appears normal, Bowel sounds: active, all quadrants, Palpation: soft, in all quadrants, moderate abdominal tenderness, in the anterior aspect of left lateral abdomen and left lower quadrant, rebound tenderness, is not appreciated, involuntary guarding, is not appreciated, 19:10 Back: CVA tenderness, is absent, 19:10 Neuro: Orientation: to person, place \T\ time. Mentation: is normal, Motor: moves all fours, strength is normal, Vital Signs: 19:30 BP 155 / 99; Pulse 76; Resp 17 S; Pulse Ox 96% on R/A; ha1 20:30 BP 152 / 90; Pulse 77; Resp 20; Pulse Ox 98% on R/A; yb 21:30 BP 146 / 93; Pulse 72; Resp 18; Pulse Ox 98% on R/A; yb 22:00 BP 150 / 98; Pulse 71; Resp 18; Pulse Ox 95% on R/A; yb 23:00 BP 124 / 93; Pulse 70; Resp 18; Temp 98.2(TE); Pulse Ox 98% on R/A; yb MDM: 18:44 Patient medically screened. 19:00 Differential diagnosis: diverticulitis, non-specific abd pain, pancreatitis, cp Pyelonephritis, Ureterolithiasis, urinary tract infection. 22:08 Data reviewed: vital signs, nurses notes, lab test result(s), radiologic studies, CT scan. 22:08 I considered the following discharge prescriptions or medication management in the emergency department Medications were administered in the Emergency Department. See MAR. Counseling: I had a detailed discussion with the patient and/or guardian regarding the historical points, exam findings, and any diagnostic results supporting the discharge/admit diagnosis, lab results, radiology results, to return to the emergency department if symptoms worsen or persist or if there are any questions or concerns that arise at home, f/u with urology if pain continues over next 2-3 days. Response to treatment: the patient's symptoms have markedly improved after treatment, and as a result, I will discharge patient. Special discussion: Based on the patient's Hx, exam, and Dx evaluation, there is no indication for emergent surgery or inpatient Tx. It is understood by the patient/guardian that if the Sx's persist or worsen they need to return immediately for re-evaluation. 01/04 18:57 Order name: CBC with Diff; Complete Time: 22:06 cp 01/04 20:48 Interpretation: Normal except: RBC 5.96; MCV 77.1; MCH 25.8; BOLA% 84.8; LYM% 7.4; NEUT cp A 8.6. 01/04 18:57 Order name: CMP; Complete Time: 20:47 cp 01/04 20:48 Interpretation: Normal except: GLUC 125; BUN 19; CRE 1.42; GFR 59; ALB 3.3; GLOB 3.8; cp A/G 0.9. 01/04 18:57 Order name: Lipase; Complete Time: 20:47 cp 01/04 18:57 Order name: Urinalysis w/ reflexes; Complete Time: 20:00 cp 01/04 21:52 Interpretation: Reviewed. cp 01/04 22:02 Order name: CBC Smear Scan; Complete Time: 22:06 EDMS 01/04 22:06 Interpretation: Reviewed. cp 01/04 20:49 Order name: CT Stone Protocol; Complete Time: 21:46 cp 01/04 18:57 Order name: IV Saline Lock; Complete Time: 19:30 cp 01/04 18:57 Order name: Labs collected and sent; Complete Time: 19:30 cp 01/04 21:48 Order name: Urine Strainer; Complete Time: 22:28 cp 01/04 21:53 Order name: PO challenge; Complete Time: 22:05 cp Administered Medications: 13:50 Drug: NS 0.9% IV 1000 ml IV at 1 bolus Per protocol; 1000 mL bolus Route: IV; Rate: 1 ha1 bolus; Site: right antecubital; 23:00 Follow up: Response: No adverse reaction; IV Status: Completed infusion; IV Intake: yb 1000ml 19:35 Drug: Ondansetron IVP 4 mg IVP once; over 2 minutes Route: IVP; Site: right antecubital;ha1 20:00 Follow up: Response: No adverse reaction; Marked relief of symptoms; Pain is decreased yb 19:37 Drug: TORadol - Ketorolac IVP 15 mg IVP once Route: IVP; Site: right antecubital; ha1 20:00 Follow up: Response: No adverse reaction; Marked relief of symptoms yb 22:08 Drug: Magnesium Sulfate IVPB 1 grams IVPB once over 20 mins Route: IVPB; Rate: 100 yb ml/min; Infused Over: 60 mins; Site: right forearm; 22:45 Follow up: Response: No adverse reaction; IV Status: Completed infusion; IV Intake: yb 100ml 22:09 Drug: Flomax PO 0.4 mg PO once Route: PO; yb 22:30 Follow up: Response: No adverse reaction yb Disposition Summary: 01/05/24 22:08 Discharge Ordered Notes: Location: Home cp Problem: new cp Symptoms: have improved cp Condition: Stable cp Diagnosis - Calculus of ureter - left cp Followup: cp - With: Meng Qureshi MD - When: 5 - 6 days - Reason: pain continues Discharge Instructions: - Discharge Summary Sheet cp - Kidney Stones cp - Renal Colic cp Forms: - Medication Reconciliation Form cp - Thank You Letter cp - Antibiotic Education cp - Prescription Opioid Use cp - Patient Portal Instructions cp - Leadership Thank You Letter cp Prescriptions: - Flomax 0.4 mg Oral capsule - take 1 capsule ORAL route daily; 7 capsule; Refills: 0, Product Selection cp Permitted - acetaminophen-codeine 300-30 mg Oral tablet - take 2 tablet ORAL route every 8 hours; 14 tablet; Refills: 0, Product cp Selection Permitted - ondansetron 8 mg Oral Tablet,disintegrating - take 1 tablet ORAL route every 12 hours; 10 tablet; Refills: 0, Product cp Selection Permitted Signatures: Dispatcher [employer] Lm Mckenna PA PA cp Ayala, Heidy, RN RN ha1 Brown, Jenny, RN RN yb Corrections: (The following items were deleted from the chart) 21:13 20:00 Abdomen Pelvis W [id number] ordered. EDMS EDMS 01/05 21:44 21:42 Back: Positive for flank pain, on the left, cp cp
--- NOTE | 2024-01-05 22:09 | ER ---
Nurse's Notes [facility] Name: Gregory Berg Age: 53 yrs Sex: Male : 1970 Arrival Date: 01/05/2024 Time: 18:35 Bed 14 Private MD: Diagnosis: Calculus of ureter-left Presentation: 01/04 19:00 Chief complaint: Patient states: REPORTS PAIN ON THE LEFT LOWER QUADRANT. NAUSEA. ha1 19:00 Method Of Arrival: Ambulatory yb 19:30 Acuity: SARA 3 ha1 19:59 Ebola Screen: No symptoms or risks identified at this time. Initial Sepsis Screen: Does ha1 the patient meet any 2 criteria? No. Patient's initial sepsis screen is negative. Does the patient have a suspected source of infection? No. Patient's initial sepsis screen is negative. Risk Assessment: Do you want to hurt yourself or someone else? Patient reports no desire to harm self or others. Onset of symptoms was January 05, 2024. 23:17 Coronavirus screen: Vaccine status:. yb Historical: - Allergies: 19:00 No Known Allergies; ha1 - Immunization history:: Adult Immunizations up to date. - Social history:: Smoking status: Patient reports the use of cigarette tobacco products, cigars. Screenin:30 [facility] ED Fall Risk Assessment (Adult) History of falling in the last 3 months, ha1 including since admission No falls in past 3 months (0 pts) Confusion or Disorientation No (0 pts) Intoxicated or Sedated No (0 pts) Impaired Gait No (0 pts) Mobility Assist Device Used No (0 pt) Altered Elimination No (0 pt) Score/Fall Risk Level 0 - 2 = Low Risk Oriented to surroundings, Maintained a safe environment, Educated pt \T\ family on fall prevention, incl call for assistance when getting out of bed, Hourly rounding (assess needs \T\ fall precautionary measures) done. Abuse screen: Denies threats or abuse. Denies injuries from another. Nutritional screening: No deficits noted. Tuberculosis screening: No symptoms or risk factors identified. Assessment: 19:30 General: Appears uncomfortable, Behavior is calm, cooperative. Pain: Complains of pain ha1 in left lower quadrant Pain does not radiate. Pain at worst was 9 out of 10 on a pain scale. Quality of pain is described as throbbing. Neuro: Level of Consciousness is awake, alert, obeys commands, Oriented to person, place, time, situation. Cardiovascular: Capillary refill < 3 seconds Patient's skin is warm and dry. Respiratory: Airway is patent Respiratory effort is even, unlabored, Respiratory pattern is regular, symmetrical. GI: Abdomen is flat, non-distended, Bowel sounds present X 4 quads. Abd is soft and non tender Reports nausea. : No signs and/or symptoms were reported regarding the genitourinary system. Derm: Skin is pink, warm \T\ dry. Musculoskeletal: Circulation, motion, and sensation intact. Range of motion: intact in all extremities. 20:30 Reassessment: Patient and/or family updated on plan of care and expected duration. Pain ha1 level reassessed. Patient is alert, oriented x 3, equal unlabored respirations, skin warm/dry/pink. going to CT. 20:50 Reassessment: back from CT. ha1 21:50 Reassessment: Patient and/or family updated on plan of care and expected duration. Pain ha1 level reassessed. Patient is alert, oriented x 3, equal unlabored respirations, skin warm/dry/pink. pain 4/10 Patient states feeling better. Patient states symptoms have improved. 22:50 Reassessment: No changes from previously documented assessment. Patient and/or family yb updated on plan of care and expected duration. Pain level reassessed. Patient is alert, oriented x 3, equal unlabored respirations, skin warm/dry/pink. Patient states feeling better. Patient states symptoms have improved. 23:00 General: discharge pending on care provider reevaluation . ha1 Vital Signs: 19:30 BP 155 / 99; Pulse 76; Resp 17 S; Pulse Ox 96% on R/A; ha1 20:30 BP 152 / 90; Pulse 77; Resp 20; Pulse Ox 98% on R/A; yb 21:30 BP 146 / 93; Pulse 72; Resp 18; Pulse Ox 98% on R/A; yb 22:00 BP 150 / 98; Pulse 71; Resp 18; Pulse Ox 95% on R/A; yb 23:00 BP 124 / 93; Pulse 70; Resp 18; Temp 98.2(TE); Pulse Ox 98% on R/A; yb ED Course: 18:36 Patient arrived in ED. mr 18:38 Page, Lm, PA is PHCP. cp 18:38 Lm Turner MD is Attending Physician. cp 19:00 Arm band placed on right wrist. ha1 19:00 Patient has correct armband on for positive identification. Bed in low position. Call ha1 light in reach. Side rails up X 1. 19:24 Saskia Vasquez, RN is Primary Nurse. ha1 19:27 Inserted saline lock: 22 gauge in right forearm, using aseptic technique. Blood ty collected. Missed attempt(s): 22 gauge in right forearm. Bleeding controlled, band aid applied, catheter tip intact. 19:30 CBC with Diff Sent. ty 19:30 CMP Sent. ty 19:30 Lipase Sent. ty 19:30 Initial lab(s) drawn, by me, sent to lab. ty 19:34 Urine collected: clean catch specimen, clear. ty 19:58 Triage completed. ha1 21:22 CT Stone Protocol In Process Unspecified. EDMS 22:08 Meng Qureshi MD is Referral Physician. cp 22:09 Richar Winters MD is Attending Physician. cp 23:16 No provider procedures requiring assistance completed. yb 23:18 IV discontinued, intact, bleeding controlled, No redness/swelling at site. Pressure yb dressing applied. 23:18 Provided Education on: Medication administration and follow up with urology. yb Administered Medications: 13:50 Drug: NS 0.9% IV 1000 ml IV at 1 bolus Per protocol; 1000 mL bolus Route: IV; Rate: 1 ha1 bolus; Site: right antecubital; 23:00 Follow up: Response: No adverse reaction; IV Status: Completed infusion; IV Intake: yb 1000ml 19:35 Drug: Ondansetron IVP 4 mg IVP once; over 2 minutes Route: IVP; Site: right antecubital;ha1 20:00 Follow up: Response: No adverse reaction; Marked relief of symptoms; Pain is decreased yb 19:37 Drug: TORadol - Ketorolac IVP 15 mg IVP once Route: IVP; Site: right antecubital; ha1 20:00 Follow up: Response: No adverse reaction; Marked relief of symptoms yb 22:08 Drug: Magnesium Sulfate IVPB 1 grams IVPB once over 20 mins Route: IVPB; Rate: 100 yb ml/min; Infused Over: 60 mins; Site: right forearm; 22:45 Follow up: Response: No adverse reaction; IV Status: Completed infusion; IV Intake: yb 100ml 22:09 Drug: Flomax PO 0.4 mg PO once Route: PO; yb 22:30 Follow up: Response: No adverse reaction yb Medication: 23:18 VIS not applicable for this client. yb Intake: 22:45 IV: 100ml; Total: 100ml. yb 23:00 IV: 1000ml; Total: 1100ml. yb Outcome: 22:08 Discharge ordered by . bob 23:16 Discharged to home ambulatory, yb 23:16 Condition: good 23:16 Condition: good 23:16 Discharge instructions given to patient, Instructed on discharge instructions, follow up and referral plans. medication usage, Demonstrated understanding of instructions, follow-up care, medications, Prescriptions given X 3, 23:18 Patient left the ED. yb Signatures: Dispatcher [employer] EDMS Geovanna Madsen, Reg Reg mr Lm Frost, Saskia Conklin cp, RN RN ha1 Jean Carlos Joe Yolanda, RN RN yb Corrections: (The following items were deleted from the chart) 23:25 23:22 Patient left the ED. yb yb
[2024-01-05 23:43] VITALS: BP 124/93; TEMP 98.2; O2SAT 98
== END ==
LOC: ER 18:35
DX: N20.1 Calculus of ureter (principal); Z72.0 Tobacco use
CPT/HCPCS: 96365; 96361; 85025; 81001; 36415; 83690; 80053; 76377; 74176; 96375; 99284; J3475; J2405; J7030